=== PATIENT | female | born 1965 | race American Indian/Alaskan Native ===

== ENCOUNTER 2016-03-29 10:40 | Outpatient (CLI) | payer OTHER ==
[2016-03-29] MEDS ORDERED: XYLOCAINE TOPICAL 4% TP ONE ×2 (10:51→11:13)
== END 2016-03-29 10:41 | disposition home or self-care (01) ==
LOC: WOUND 10:40
PROVIDERS: ATTEND Orthopaedic Surgery
DX: L97.521 Non-pressure chronic ulcer of other part of left foot limited to breakdown of skin (principal); L97.511 Non-pressure chronic ulcer of other part of right foot limited to breakdown of skin; G62.9 Polyneuropathy, unspecified; I10 Essential (primary) hypertension; M19.90 Unspecified osteoarthritis, unspecified site; M06.9 Rheumatoid arthritis, unspecified; L84 Corns and callosities
CPT/HCPCS: 11042; C5271; Q4102

== ENCOUNTER 2016-04-12 11:00 | Outpatient (CLI) | payer OTHER | END 2016-04-12 11:01 | disposition home or self-care (01) | LOC: WOUND 11:00 | PROVIDERS: ATTEND Orthopaedic Surgery | DX: L97.521 Non-pressure chronic ulcer of other part of left foot limited to breakdown of skin (principal); L97.511 Non-pressure chronic ulcer of other part of right foot limited to breakdown of skin; I10 Essential (primary) hypertension; G62.9 Polyneuropathy, unspecified; M19.90 Unspecified osteoarthritis, unspecified site; M06.9 Rheumatoid arthritis, unspecified | CPT/HCPCS: C5271; Q4102 ==

== ENCOUNTER 2016-04-19 10:43 | Outpatient (CLI) | payer OTHER ==
[2016-04-19] MEDS ORDERED: XYLOCAINE TOPICAL 2% ONE (11:03)
[2016-04-19] MEDS ORDERED: XYLOCAINE TOPICAL 2% TP ONE (11:22)
[2016-04-19] MEDS ORDERED: SODIUM CHLORIDE FLUSH SYRINGE 10 ML IV ONE (11:23)
== END 2016-04-19 10:44 | disposition home or self-care (01) ==
LOC: WOUND 10:43
PROVIDERS: ATTEND Orthopaedic Surgery
DX: L97.521 Non-pressure chronic ulcer of other part of left foot limited to breakdown of skin (principal); L97.511 Non-pressure chronic ulcer of other part of right foot limited to breakdown of skin; I10 Essential (primary) hypertension; G62.9 Polyneuropathy, unspecified; M19.90 Unspecified osteoarthritis, unspecified site
CPT/HCPCS: 11042; C5271; Q4102

== ENCOUNTER 2016-04-26 09:40 | Outpatient (CLI) | payer OTHER ==
[2016-04-26] MEDS ORDERED: XYLOCAINE TOPICAL 2% ONE (09:42)
[2016-04-27] MEDS ORDERED: XYLOCAINE TOPICAL 2% TP ONE (13:41)
== END 2016-04-26 09:41 | disposition home or self-care (01) ==
LOC: WOUND 09:40
PROVIDERS: ATTEND Internal Medicine
DX: L97.521 Non-pressure chronic ulcer of other part of left foot limited to breakdown of skin (principal); L97.511 Non-pressure chronic ulcer of other part of right foot limited to breakdown of skin; G90.9 Disorder of the autonomic nervous system, unspecified; I10 Essential (primary) hypertension; G60.3 Idiopathic progressive neuropathy

== ENCOUNTER 2016-05-02 10:40 | Outpatient (CLI) | payer OTHER ==
[2016-05-02] MEDS ORDERED: XYLOCAINE TOPICAL 4% TP ONE ×2 (10:50→14:13)
== END 2016-05-02 10:41 | disposition home or self-care (01) ==
LOC: WOUND 10:40
PROVIDERS: ATTEND Internal Medicine
DX: L97.811 Non-pressure chronic ulcer of other part of right lower leg limited to breakdown of skin (principal); L97.821 Non-pressure chronic ulcer of other part of left lower leg limited to breakdown of skin; G90.9 Disorder of the autonomic nervous system, unspecified; I10 Essential (primary) hypertension; G60.3 Idiopathic progressive neuropathy; M19.90 Unspecified osteoarthritis, unspecified site
CPT/HCPCS: 11719

== ENCOUNTER 2016-05-09 10:12 | Outpatient (CLI) | payer OTHER ==
[2016-05-09] MEDS ORDERED: XYLOCAINE TOPICAL 4% TP ONE ×2 (10:21→10:42)
== END 2016-05-09 10:13 | disposition home or self-care (01) ==
LOC: WOUND 10:12
PROVIDERS: ATTEND Internal Medicine
DX: L97.912 Non-pressure chronic ulcer of unspecified part of right lower leg with fat layer exposed (principal); L97.922 Non-pressure chronic ulcer of unspecified part of left lower leg with fat layer exposed; I10 Essential (primary) hypertension; G90.9 Disorder of the autonomic nervous system, unspecified; G60.3 Idiopathic progressive neuropathy; G62.9 Polyneuropathy, unspecified; M06.9 Rheumatoid arthritis, unspecified

== ENCOUNTER 2016-05-16 10:40 | Outpatient (CLI) | payer OTHER ==
[2016-05-16] MEDS ORDERED: XYLOCAINE TOPICAL 4% TP ONE ×2 (10:46→11:11)
== END 2016-05-16 10:41 | disposition home or self-care (01) ==
LOC: WOUND 10:40
PROVIDERS: ATTEND Internal Medicine
DX: L97.522 Non-pressure chronic ulcer of other part of left foot with fat layer exposed (principal); L97.512 Non-pressure chronic ulcer of other part of right foot with fat layer exposed; I10 Essential (primary) hypertension; G62.9 Polyneuropathy, unspecified; M06.9 Rheumatoid arthritis, unspecified

== ENCOUNTER 2016-05-23 09:47 | Outpatient (CLI) | payer OTHER ==
[2016-05-23] MEDS ORDERED: XYLOCAINE TOPICAL 2% ONE (10:08)
[2016-05-23] MEDS ORDERED: SILVER NITRATE TP ONE (10:42)
[2016-05-24] MEDS ORDERED: XYLOCAINE TOPICAL 2% TP ONE (08:12)
[2016-05-24] MEDS ORDERED: SILVER NITRATE TP ONE (08:13)
== END 2016-05-23 09:48 | disposition home or self-care (01) ==
LOC: WOUND 09:47
PROVIDERS: ATTEND Internal Medicine
DX: E11.622 Type 2 diabetes mellitus with other skin ulcer (principal); L97.812 Non-pressure chronic ulcer of other part of right lower leg with fat layer exposed; L97.822 Non-pressure chronic ulcer of other part of left lower leg with fat layer exposed; E11.40 Type 2 diabetes mellitus with diabetic neuropathy, unspecified; M06.9 Rheumatoid arthritis, unspecified; I10 Essential (primary) hypertension

== ENCOUNTER 2016-06-06 10:22 | Outpatient (CLI) | payer OTHER ==
[2016-06-06] MEDS ORDERED: XYLOCAINE TOPICAL 4% TP ONE ×2 (10:39→11:00)
== END 2016-06-06 10:23 | disposition home or self-care (01) ==
LOC: WOUND 10:22
PROVIDERS: ATTEND Internal Medicine
DX: L97.812 Non-pressure chronic ulcer of other part of right lower leg with fat layer exposed (principal); L97.822 Non-pressure chronic ulcer of other part of left lower leg with fat layer exposed; G90.9 Disorder of the autonomic nervous system, unspecified; I10 Essential (primary) hypertension; G60.3 Idiopathic progressive neuropathy; M06.9 Rheumatoid arthritis, unspecified

== ENCOUNTER 2016-06-20 10:24 | Outpatient (CLI) | payer OTHER ==
[2016-06-20] MEDS ORDERED: XYLOCAINE TOPICAL 4% TP ONE ×2 (10:35→15:19)
== END 2016-06-20 10:25 | disposition home or self-care (01) ==
LOC: WOUND 10:24
PROVIDERS: ATTEND Podiatrist
DX: L97.522 Non-pressure chronic ulcer of other part of left foot with fat layer exposed (principal); L97.512 Non-pressure chronic ulcer of other part of right foot with fat layer exposed; G60.3 Idiopathic progressive neuropathy; I10 Essential (primary) hypertension; M06.9 Rheumatoid arthritis, unspecified
CPT/HCPCS: 11042; G0463

== ENCOUNTER 2016-07-11 11:13 | Outpatient (CLI) | payer OTHER ==
[~2016-07-11 11:13] MED LIST: NACL ONE; XYLOCAINE TOPICAL 4% TP ONE
[2016-07-11] MEDS ORDERED: XYLOCAINE TOPICAL 4% TP ONE (11:44)
[2016-07-11] MEDS ORDERED: SILVER NITRATE TP ONE (12:19)
== END 2016-07-11 11:14 | disposition home or self-care (01) ==
LOC: WOUND 11:13
PROVIDERS: ATTEND Internal Medicine
DX: L97.511 Non-pressure chronic ulcer of other part of right foot limited to breakdown of skin (principal); L97.521 Non-pressure chronic ulcer of other part of left foot limited to breakdown of skin; G60.3 Idiopathic progressive neuropathy; I10 Essential (primary) hypertension; M19.90 Unspecified osteoarthritis, unspecified site; M06.9 Rheumatoid arthritis, unspecified

== ENCOUNTER 2016-07-18 11:17 | Outpatient (CLI) | payer OTHER ==
[2016-07-18] MEDS ORDERED: XYLOCAINE TOPICAL 2% ONE (11:32)
[2016-07-18] MEDS ORDERED: XYLOCAINE TOPICAL 2% TP ONE (12:29)
== END 2016-07-18 11:18 | disposition home or self-care (01) ==
LOC: WOUND 11:17
PROVIDERS: ATTEND Surgery
DX: L97.512 Non-pressure chronic ulcer of other part of right foot with fat layer exposed (principal); L97.522 Non-pressure chronic ulcer of other part of left foot with fat layer exposed; G60.3 Idiopathic progressive neuropathy; I10 Essential (primary) hypertension; M19.90 Unspecified osteoarthritis, unspecified site; M06.80 Other specified rheumatoid arthritis, unspecified site; G62.9 Polyneuropathy, unspecified
CPT/HCPCS: 99214; G0463

== ENCOUNTER 2016-07-25 11:19 | Outpatient (CLI) | payer OTHER ==
[2016-07-25] MEDS ORDERED: XYLOCAINE TOPICAL 2% ONE (11:51)
[2016-07-25] MEDS ORDERED: XYLOCAINE TOPICAL 2% TP ONE (16:24)
== END 2016-07-25 11:20 | disposition home or self-care (01) ==
LOC: WOUND 11:19
PROVIDERS: ATTEND Surgery
DX: G62.9 Polyneuropathy, unspecified (principal); L97.521 Non-pressure chronic ulcer of other part of left foot limited to breakdown of skin; L97.511 Non-pressure chronic ulcer of other part of right foot limited to breakdown of skin; I10 Essential (primary) hypertension; M19.90 Unspecified osteoarthritis, unspecified site; M06.9 Rheumatoid arthritis, unspecified

== ENCOUNTER 2016-08-08 14:14 | Outpatient (CLI) | payer OTHER ==
[2016-08-08] MEDS ORDERED: XYLOCAINE TOPICAL 4% TP ONE ×2 (14:33→14:37)
== END 2016-08-08 14:15 | disposition home or self-care (01) ==
LOC: WOUND 14:14
PROVIDERS: ATTEND Surgery
DX: L97.512 Non-pressure chronic ulcer of other part of right foot with fat layer exposed (principal); L97.522 Non-pressure chronic ulcer of other part of left foot with fat layer exposed; G60.3 Idiopathic progressive neuropathy; I10 Essential (primary) hypertension; M19.90 Unspecified osteoarthritis, unspecified site

== ENCOUNTER 2016-08-15 13:16 | Outpatient (CLI) | payer OTHER ==
[2016-08-15] MEDS ORDERED: XYLOCAINE TOPICAL 2% ONE (13:26)
[2016-08-15] MEDS ORDERED: XYLOCAINE TOPICAL 2% TP ONE (13:33)
[2016-08-15] MEDS ORDERED: SILVER NITRATE TP ONE ×2 (13:42→14:45)
== END 2016-08-15 13:17 | disposition home or self-care (01) ==
LOC: WOUND 13:16
PROVIDERS: ATTEND Surgery
DX: L97.512 Non-pressure chronic ulcer of other part of right foot with fat layer exposed (principal); L97.522 Non-pressure chronic ulcer of other part of left foot with fat layer exposed; G60.3 Idiopathic progressive neuropathy; M06.9 Rheumatoid arthritis, unspecified; I10 Essential (primary) hypertension

== ENCOUNTER 2016-08-22 13:17 | Outpatient (CLI) | payer OTHER ==
[2016-08-22] MEDS ORDERED: XYLOCAINE TOPICAL 2% ONE (13:29)
[2016-08-22] MEDS ORDERED: XYLOCAINE TOPICAL 2% TP ONE (13:35)
[2016-08-22] MEDS ORDERED: SILVER NITRATE TP ONE ×2 (13:54→13:56)
== END 2016-08-22 13:18 | disposition home or self-care (01) ==
LOC: WOUND 13:17
PROVIDERS: ATTEND Surgery
DX: L97.512 Non-pressure chronic ulcer of other part of right foot with fat layer exposed (principal); L97.522 Non-pressure chronic ulcer of other part of left foot with fat layer exposed; G60.3 Idiopathic progressive neuropathy; I10 Essential (primary) hypertension; M19.90 Unspecified osteoarthritis, unspecified site

== ENCOUNTER 2016-09-04 13:17 | Outpatient (CLI) | payer OTHER ==
[2016-09-04] MEDS ORDERED: XYLOCAINE TOPICAL 4% TP ONE ×2 (13:41→13:44)
[2016-09-04] MEDS ORDERED: SILVER NITRATE TP ONE (15:00)
== END 2016-09-04 13:18 | disposition home or self-care (01) ==
LOC: WOUND 13:17
PROVIDERS: ATTEND Surgery
DX: E11.621 Type 2 diabetes mellitus with foot ulcer (principal); L97.512 Non-pressure chronic ulcer of other part of right foot with fat layer exposed; L97.522 Non-pressure chronic ulcer of other part of left foot with fat layer exposed; E11.40 Type 2 diabetes mellitus with diabetic neuropathy, unspecified; G60.3 Idiopathic progressive neuropathy; I10 Essential (primary) hypertension; M06.9 Rheumatoid arthritis, unspecified
CPT/HCPCS: 97597

== ENCOUNTER 2016-09-11 10:48 | Outpatient (CLI) | payer OTHER ==
[2016-09-11] MEDS ORDERED: XYLOCAINE TOPICAL 2% ONE (11:11)
[2016-09-11] MEDS ORDERED: XYLOCAINE TOPICAL 2% TP ONE (11:11)
[2016-09-11] MEDS ORDERED: SILVER NITRATE TP ONE ×2 (11:33→15:23)
== END 2016-09-11 10:49 | disposition home or self-care (01) ==
LOC: WOUND 10:48
PROVIDERS: ATTEND Surgery
DX: E11.621 Type 2 diabetes mellitus with foot ulcer (principal); L97.512 Non-pressure chronic ulcer of other part of right foot with fat layer exposed; L97.522 Non-pressure chronic ulcer of other part of left foot with fat layer exposed; E11.40 Type 2 diabetes mellitus with diabetic neuropathy, unspecified; G60.3 Idiopathic progressive neuropathy; M06.9 Rheumatoid arthritis, unspecified; M19.90 Unspecified osteoarthritis, unspecified site; I10 Essential (primary) hypertension

== ENCOUNTER 2016-09-19 11:24 | Outpatient (CLI) | payer OTHER ==
[2016-09-19] MEDS ORDERED: XYLOCAINE TOPICAL 2% ONE (11:51)
[2016-09-19] MEDS ORDERED: XYLOCAINE TOPICAL 2% TP ONE (16:53)
== END 2016-09-19 11:25 | disposition home or self-care (01) ==
LOC: WOUND 11:24
PROVIDERS: ATTEND Surgery
DX: E11.621 Type 2 diabetes mellitus with foot ulcer (principal); L97.522 Non-pressure chronic ulcer of other part of left foot with fat layer exposed; L97.512 Non-pressure chronic ulcer of other part of right foot with fat layer exposed; E11.40 Type 2 diabetes mellitus with diabetic neuropathy, unspecified; M19.90 Unspecified osteoarthritis, unspecified site; M06.9 Rheumatoid arthritis, unspecified; I10 Essential (primary) hypertension

== ENCOUNTER 2016-09-26 13:57 | Outpatient (CLI) | payer OTHER ==
[2016-09-26] MEDS ORDERED: SILVER NITRATE TP ONE ×2 (15:02→16:41)
[2016-09-26] MEDS ORDERED: XYLOCAINE TOPICAL 4% TP ONE (16:00)
== END 2016-09-26 13:58 | disposition home or self-care (01) ==
LOC: WOUND 13:57
PROVIDERS: ATTEND Surgery
DX: E11.621 Type 2 diabetes mellitus with foot ulcer (principal); L97.512 Non-pressure chronic ulcer of other part of right foot with fat layer exposed; L97.522 Non-pressure chronic ulcer of other part of left foot with fat layer exposed; E11.40 Type 2 diabetes mellitus with diabetic neuropathy, unspecified; I10 Essential (primary) hypertension; M19.90 Unspecified osteoarthritis, unspecified site; M06.9 Rheumatoid arthritis, unspecified
CPT/HCPCS: 97597

== ENCOUNTER 2016-10-10 13:51 | Outpatient (CLI) | payer OTHER ==
[2016-10-10] MEDS ORDERED: XYLOCAINE TOPICAL 2% ONE (14:19)
[2016-10-10] MEDS ORDERED: SILVER NITRATE TP ONE ×2 (14:34→15:00)
[2016-10-10] MEDS ORDERED: XYLOCAINE TOPICAL 2% TP ONE (15:00)
== END 2016-10-10 13:52 | disposition home or self-care (01) ==
LOC: WOUND 13:51
PROVIDERS: ATTEND Surgery
DX: E11.621 Type 2 diabetes mellitus with foot ulcer (principal); L97.512 Non-pressure chronic ulcer of other part of right foot with fat layer exposed; L97.522 Non-pressure chronic ulcer of other part of left foot with fat layer exposed; G60.3 Idiopathic progressive neuropathy; I10 Essential (primary) hypertension; M19.90 Unspecified osteoarthritis, unspecified site; M06.9 Rheumatoid arthritis, unspecified

== ENCOUNTER 2016-10-17 13:55 | Outpatient (CLI) | payer OTHER ==
[2016-10-17] MEDS ORDERED: XYLOCAINE TOPICAL 4% TP ONE (14:28)
[2016-10-17] MEDS ORDERED: SILVER NITRATE TP ONE (14:32)
== END 2016-10-17 13:56 | disposition home or self-care (01) ==
LOC: WOUND 13:55
PROVIDERS: ATTEND Surgery
DX: E11.621 Type 2 diabetes mellitus with foot ulcer (principal); L97.512 Non-pressure chronic ulcer of other part of right foot with fat layer exposed; L97.522 Non-pressure chronic ulcer of other part of left foot with fat layer exposed; E11.40 Type 2 diabetes mellitus with diabetic neuropathy, unspecified; G60.3 Idiopathic progressive neuropathy; M19.90 Unspecified osteoarthritis, unspecified site; M06.9 Rheumatoid arthritis, unspecified; I10 Essential (primary) hypertension

== ENCOUNTER 2016-10-26 13:21 | Outpatient (CLI) | payer OTHER ==
[2016-10-26] MEDS ORDERED: XYLOCAINE TOPICAL 2% ONE (13:54)
== END 2016-10-26 13:22 | disposition home or self-care (01) ==
LOC: WOUND 13:21
PROVIDERS: ATTEND Podiatrist
DX: E11.621 Type 2 diabetes mellitus with foot ulcer (principal); L97.512 Non-pressure chronic ulcer of other part of right foot with fat layer exposed; L97.522 Non-pressure chronic ulcer of other part of left foot with fat layer exposed; E11.40 Type 2 diabetes mellitus with diabetic neuropathy, unspecified; M19.90 Unspecified osteoarthritis, unspecified site; M06.9 Rheumatoid arthritis, unspecified; I10 Essential (primary) hypertension

== ENCOUNTER 2016-10-31 13:58 | Outpatient (CLI) | payer OTHER ==
[2016-10-31] MEDS ORDERED: XYLOCAINE TOPICAL 2% ONE (14:12)
[2016-10-31] MEDS ORDERED: XYLOCAINE TOPICAL 2% TP ONE (14:24)
[2016-10-31] MEDS ORDERED: SILVER NITRATE TP ONE ×2 (14:33→17:00)
== END 2016-10-31 13:59 | disposition home or self-care (01) ==
LOC: WOUND 13:58
PROVIDERS: ATTEND Surgery
DX: E11.621 Type 2 diabetes mellitus with foot ulcer (principal); L97.512 Non-pressure chronic ulcer of other part of right foot with fat layer exposed; L97.522 Non-pressure chronic ulcer of other part of left foot with fat layer exposed; E11.40 Type 2 diabetes mellitus with diabetic neuropathy, unspecified; M19.90 Unspecified osteoarthritis, unspecified site; M06.9 Rheumatoid arthritis, unspecified
CPT/HCPCS: 17250

== ENCOUNTER 2016-11-14 13:53 | Outpatient (CLI) | payer OTHER ==
[2016-11-14] MEDS ORDERED: XYLOCAINE TOPICAL 4% TP ONE ×2 (13:56→14:10)
[2016-11-14] MEDS ORDERED: SILVER NITRATE TP ONE ×2 (14:17→14:22)
== END 2016-11-14 13:54 | disposition home or self-care (01) ==
LOC: WOUND 13:53
PROVIDERS: ATTEND Surgery
DX: E11.621 Type 2 diabetes mellitus with foot ulcer (principal); L97.521 Non-pressure chronic ulcer of other part of left foot limited to breakdown of skin; L97.511 Non-pressure chronic ulcer of other part of right foot limited to breakdown of skin; E11.40 Type 2 diabetes mellitus with diabetic neuropathy, unspecified; I10 Essential (primary) hypertension; M19.90 Unspecified osteoarthritis, unspecified site; M06.9 Rheumatoid arthritis, unspecified

== ENCOUNTER 2016-11-21 13:17 | Outpatient (CLI) | payer OTHER ==
[2016-11-21] MEDS ORDERED: SILVER NITRATE TP ONE ×2 (13:49→15:00)
[2016-11-21] MEDS ORDERED: XYLOCAINE TOPICAL 4% TP ONE (14:00)
== END 2016-11-21 13:18 | disposition home or self-care (01) ==
LOC: WOUND 13:17
PROVIDERS: ATTEND Surgery
DX: E11.621 Type 2 diabetes mellitus with foot ulcer (principal); L97.511 Non-pressure chronic ulcer of other part of right foot limited to breakdown of skin; E11.40 Type 2 diabetes mellitus with diabetic neuropathy, unspecified; M19.90 Unspecified osteoarthritis, unspecified site; M06.9 Rheumatoid arthritis, unspecified; I10 Essential (primary) hypertension
CPT/HCPCS: 17250

== ENCOUNTER 2016-11-21 16:02 | Outpatient (CLI) | payer OTHER ==
--- NOTE | 2016-11-22 16:30 | Mammography Report ---
BILATERAL DIGITAL SCREENING MAMMOGRAM with CAD: 11/21/16 16:02:00 CLINICAL: Routine screening. COMPARISON:04/07/12 FINDINGS: The breasts are heterogeneously dense, which may obscure small masses. No mass, architectural distortion or suspicious calcifications. IMPRESSION: No mammographic evidence of malignancy. BI-RADS CATEGORY: 1 - - Negative RECOMMENDATION: Routine mammographic screening in one year. COMMENT: Patient follow-up letters are generated by our [employer] application.
== END 2016-11-21 16:03 | disposition home or self-care (01) ==
LOC: SPVWC 16:02
PROVIDERS: ATTEND Family Medicine
DX: Z12.31 Encounter for screening mammogram for malignant neoplasm of breast (principal); J45.909 Unspecified asthma, uncomplicated; I10 Essential (primary) hypertension; E78.00 Pure hypercholesterolemia, unspecified
CPT/HCPCS: 77067; G0202

== ENCOUNTER 2016-11-29 09:26 | Outpatient (CLI) | payer OTHER ==
[2016-11-29] MEDS ORDERED: XYLOCAINE TOPICAL 2% TP ONE (10:15)
[2016-11-29] MEDS ORDERED: XYLOCAINE TOPICAL 2% ONE (10:22)
== END 2016-11-29 09:27 | disposition home or self-care (01) ==
LOC: WOUND 09:26
PROVIDERS: ATTEND Nurse Practitioner
DX: E11.621 Type 2 diabetes mellitus with foot ulcer (principal); L97.512 Non-pressure chronic ulcer of other part of right foot with fat layer exposed; L97.522 Non-pressure chronic ulcer of other part of left foot with fat layer exposed; E11.40 Type 2 diabetes mellitus with diabetic neuropathy, unspecified; G90.9 Disorder of the autonomic nervous system, unspecified; I10 Essential (primary) hypertension; G60.3 Idiopathic progressive neuropathy; M06.9 Rheumatoid arthritis, unspecified; M19.90 Unspecified osteoarthritis, unspecified site
CPT/HCPCS: 11055

== ENCOUNTER 2016-12-05 13:48 | Outpatient (CLI) | payer OTHER ==
[2016-12-05] MEDS ORDERED: XYLOCAINE TOPICAL 4% TP ONE ×2 (14:10→14:13)
[2016-12-05] MEDS ORDERED: SILVER NITRATE TP ONE (14:28)
[2016-12-06] MEDS ORDERED: SILVER NITRATE TP ONE (16:07)
== END 2016-12-05 13:49 | disposition home or self-care (01) ==
LOC: WOUND 13:48
PROVIDERS: ATTEND Surgery
DX: E11.621 Type 2 diabetes mellitus with foot ulcer (principal); L97.512 Non-pressure chronic ulcer of other part of right foot with fat layer exposed; L97.522 Non-pressure chronic ulcer of other part of left foot with fat layer exposed; E11.40 Type 2 diabetes mellitus with diabetic neuropathy, unspecified; M19.90 Unspecified osteoarthritis, unspecified site; M06.9 Rheumatoid arthritis, unspecified; L84 Corns and callosities

== ENCOUNTER 2016-12-20 09:23 | Outpatient (CLI) | payer OTHER ==
[2016-12-20] MEDS ORDERED: XYLOCAINE TOPICAL 2% TP ONE (09:31)
[2016-12-20] MEDS ORDERED: XYLOCAINE TOPICAL 2% ONE (09:36)
== END 2016-12-20 09:24 | disposition home or self-care (01) ==
LOC: WOUND 09:23
PROVIDERS: ATTEND Nurse Practitioner
DX: E11.621 Type 2 diabetes mellitus with foot ulcer (principal); L97.512 Non-pressure chronic ulcer of other part of right foot with fat layer exposed; L97.522 Non-pressure chronic ulcer of other part of left foot with fat layer exposed; E11.40 Type 2 diabetes mellitus with diabetic neuropathy, unspecified; G90.9 Disorder of the autonomic nervous system, unspecified; G60.3 Idiopathic progressive neuropathy; M19.90 Unspecified osteoarthritis, unspecified site; M06.9 Rheumatoid arthritis, unspecified; I10 Essential (primary) hypertension
CPT/HCPCS: 11055

== ENCOUNTER 2017-01-11 11:06 | Outpatient (CLI) | payer OTHER ==
[2017-01-11] MEDS ORDERED: XYLOCAINE TOPICAL 4% TP ONE ×2 (11:20→11:26)
== END 2017-01-11 11:07 | disposition home or self-care (01) ==
LOC: WOUND 11:06
PROVIDERS: ATTEND Podiatrist
DX: E11.621 Type 2 diabetes mellitus with foot ulcer (principal); L97.512 Non-pressure chronic ulcer of other part of right foot with fat layer exposed; E11.40 Type 2 diabetes mellitus with diabetic neuropathy, unspecified; G90.9 Disorder of the autonomic nervous system, unspecified; M19.90 Unspecified osteoarthritis, unspecified site; M06.9 Rheumatoid arthritis, unspecified; I10 Essential (primary) hypertension

== ENCOUNTER 2017-01-18 13:22 | Outpatient (CLI) | payer OTHER ==
[2017-01-18] MEDS ORDERED: XYLOCAINE TOPICAL 2% TP ONE (13:37)
[2017-01-18] MEDS ORDERED: XYLOCAINE TOPICAL 2% ONE (13:41)
== END 2017-01-18 13:23 | disposition home or self-care (01) ==
LOC: WOUND 13:22
PROVIDERS: ATTEND Podiatrist
DX: E11.621 Type 2 diabetes mellitus with foot ulcer (principal); L97.512 Non-pressure chronic ulcer of other part of right foot with fat layer exposed; E11.40 Type 2 diabetes mellitus with diabetic neuropathy, unspecified; L84 Corns and callosities; G60.3 Idiopathic progressive neuropathy; M06.9 Rheumatoid arthritis, unspecified; I10 Essential (primary) hypertension
CPT/HCPCS: 11055

== ENCOUNTER 2017-02-08 13:21 | Outpatient (CLI) | payer OTHER ==
[2017-02-08] MEDS ORDERED: XYLOCAINE TOPICAL 4% TP ONE (13:30)
== END 2017-02-08 13:22 | disposition home or self-care (01) ==
LOC: WOUND 13:21
PROVIDERS: ATTEND Podiatrist
DX: E11.621 Type 2 diabetes mellitus with foot ulcer (principal); L97.512 Non-pressure chronic ulcer of other part of right foot with fat layer exposed; E11.40 Type 2 diabetes mellitus with diabetic neuropathy, unspecified; L84 Corns and callosities; I10 Essential (primary) hypertension; M06.9 Rheumatoid arthritis, unspecified; M19.90 Unspecified osteoarthritis, unspecified site
CPT/HCPCS: 11055

== ENCOUNTER 2017-03-01 13:16 | Outpatient (CLI) | payer OTHER ==
[2017-03-01] MEDS ORDERED: XYLOCAINE TOPICAL 4% TP ONE ×2 (13:26→14:04)
== END 2017-03-01 13:17 | disposition home or self-care (01) ==
LOC: WOUND 13:16
PROVIDERS: ATTEND Podiatrist
DX: E11.621 Type 2 diabetes mellitus with foot ulcer (principal); L97.512 Non-pressure chronic ulcer of other part of right foot with fat layer exposed; E11.40 Type 2 diabetes mellitus with diabetic neuropathy, unspecified; L84 Corns and callosities; I10 Essential (primary) hypertension; M06.9 Rheumatoid arthritis, unspecified
CPT/HCPCS: 11055